=== PATIENT | female | born 1975 | race Caucasian/White ===

== ENCOUNTER 2021-02-11 00:52 | Inpatient (IN) | payer OTHER ==
[~2021-02-11] VITALS: Ht 157.5 cm; Wt 73.0 kg
[2021-02-11 02:40] LABS: RED BLOOD COUNT 3.89 M/UL (4.00-5.10); WHITE BLOOD COUNT 11.9 K/UL (4.5-11.0)
[2021-02-11 02:51] LABS: BUN/CREATININE RATIO 26 (0-10)
[2021-02-11] MEDS ORDERED: KEFLEX750 MG PO (04:23)
[2021-02-12 05:27] LABS: HEMOGLOBIN 11.5 gm/dl (12.3-15.3); RED BLOOD COUNT 3.54 M/UL (4.00-5.10); WHITE BLOOD COUNT 10.9 K/UL (4.5-11.0)
[2021-02-12 05:49] LABS: BUN/CREATININE RATIO 26 (0-10)
[2021-02-13 04:06] LABS: HEMOGLOBIN 10.4 gm/dl (12.3-15.3); WHITE BLOOD COUNT 11.1 K/UL (4.5-11.0)
[2021-02-13 04:07] LABS: RED BLOOD COUNT 3.16 M/UL (4.00-5.10)
[2021-02-13 04:17] LABS: BUN/CREATININE RATIO 20 (0-10)
[2021-02-14 04:12] LABS: HEMOGLOBIN 9.7 gm/dl (12.3-15.3); WHITE BLOOD COUNT 10.6 K/UL (4.5-11.0)
[2021-02-14 04:39] LABS: BUN/CREATININE RATIO 18 (0-10)
[2021-02-15 03:43] LABS: WHITE BLOOD COUNT 12.3 K/UL (4.5-11.0)
[2021-02-15 03:48] LABS: RED BLOOD COUNT 3.42 M/UL (4.00-5.10)
[2021-02-15 03:59] LABS: BUN/CREATININE RATIO 14 (0-10)
[2021-02-15] MEDS ORDERED: LANTUS INS100 UTS/M1 SC (11:06)
[2021-02-15] MEDS ORDERED: PERCOCET 10-321 EACH PO ×2 (11:06→11:08)
[2021-02-15] MEDS ORDERED: CLEOCIN HCL300 MG PO (11:06)
[2021-02-15] MEDS ORDERED: GLUCOPHAGE 500500 MG PO (11:06)
== END 2021-02-15 14:45 | disposition home or self-care (01) | DRG 580 ==
LOC: ER1 00:52 → CDU 06:48 → MED SURG 4 11:11
PROVIDERS: Family Medicine; Internal Medicine; Physician Assistant; Surgery; ADMIT Internal Medicine
PROC: 0J990ZZ Drainage of Buttock Subcutaneous Tissue and Fascia, Open Approach (ICD-10-PCS; principal; 2021-02-11 09:33)
DX: L02.31 Cutaneous abscess of buttock (principal); E87.1 Hypo-osmolality and hyponatremia; F19.10 Other psychoactive substance abuse, uncomplicated; E11.65 Type 2 diabetes mellitus with hyperglycemia; B18.2 Chronic viral hepatitis C; E87.6 Hypokalemia; M79.89 Other specified soft tissue disorders; F17.200 Nicotine dependence, unspecified, uncomplicated; F15.10 Other stimulant abuse, uncomplicated; M79.605 Pain in left leg; Z79.4 Long term (current) use of insulin; Z83.3 Family history of diabetes mellitus
CPT/HCPCS: 36415; 80048; 80053; 80202; 80307; 82140; 82533; 82962; 83036; 83605; 83935; 84300; 84439; 84443; 84703; 85025; 86140; 87040; 87070; 87086; 87205; 93005; 93970; 96374; 96375; 99285; C9113; J1100; J1170; J1650; J1940; J2001; J2405; J2543; J2704; J3010; J3370; J7030; J7070; J7120; Q9967; U0002

== ENCOUNTER 2021-02-22 15:44 | Emergency (ER) | payer OTHER ==
[~2021-02-22 15:44] MED LIST: CLEOCIN HCL300 MG PO; GLUCOPHAGE 500500 MG PO; KEFLEX750 MG PO; LANTUS INS100 UTS/M1 SC; PERCOCET 10-321 EACH PO
== END 2021-02-22 22:37 | disposition home or self-care (01) ==
LOC: ER1 15:44
DX: G89.28 Other chronic postprocedural pain (principal); F17.210 Nicotine dependence, cigarettes, uncomplicated; Z76.0 Encounter for issue of repeat prescription; Z86.19 Personal history of other infectious and parasitic diseases
CPT/HCPCS: 99283